=== PATIENT | male | born 1990 | race Caucasian/White ===

== ENCOUNTER 2018-07-11 13:36 | Emergency (ER) | payer BC ==
--- NOTE | 2018-07-11 15:50 | EDM.PDOC ---
ED HPI GENERAL MEDICAL PROBLEM - General Chief Complaint: ENT Problem Stated Complaint: NOSE INJURY Time Seen by Provider: 07/11/18 14:15 Source of Information: Reports: Patient History Limitations: Reports: No Limitations - History of Present Illness INITIAL COMMENTS - FREE TEXT/NARRATIVE: The patient states that he was the third basement playing softball around 13:40 , when a struck ball that he was trying to catch a bounced Sam, striking him in his face, primarily to the left side of his nose and to his left eye. There is no loss of consciousness. The patient presents to the ED with a laceration just to the medial side of his left eye, causing blood on his face, as well as right epistaxis. He reports only a dull ache to his nose. He is otherwise uninjured. No prior nose injury. The patient's PCP is Dr. Zuñiga at [facility]. Nose Pain Score (Numeric/FACES): 6 - Related Data Allergies Allergy/AdvReac Type Severity Reaction Status Date / Time No Known Allergies Allergy Verified 07/11/18 13:54 Home Meds: Home Meds . [No Known Home Meds] 07/11/18 [History] Past Medical History Cardiovascular History: Reports: High Cholesterol (untreated) Psychiatric History: Reports: Anxiety (untreated), Panic Attack (untreated) - Past Surgical History HEENT Surgical History: Reports: Myringotomy w Tube(s) (bilateral), Oral Surgery (wisdom teeth extraction) Social & Family History - Tobacco Use Smoking Status *Q: Never Smoker Second Hand Smoke Exposure: No - Caffeine Use Caffeine Use: Reports: Coffee - Alcohol Use Alcohol Use History: Yes Days Per Week of Alcohol Use: 3 Number of Drinks Per Day: 3 Total Drinks Per Week: 9 Alcohol Use Frequency: Socially - Recreational Drug Use Recreational Drug Use: Yes Drug Use in Last 12 Months: Yes Recreational Drug Type: Reports: Marijuana/Hashish (smokes regularly) - Living Situation & Occupation Living situation: Reports: Single, Alone 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 ED EXAM, GENERAL - Physical Exam Exam: See Below Exam Limited By: No Limitations General Appearance: Alert, WD/WN, No Apparent Distress Eye Exam: Left Eye: Periorbital Changes (slight eccymosis to the medial aspect. No swelling or tenderness), Bilateral Eye: EOMI Ears: Normal External Exam, Hearing Grossly Normal Nose: Other (Minimal tenderness to palpation along the nasal bones. No nasal swelling. No septal hematoma. There is blood in the left nare, although no active bleeding presently. There is blood in the right nare, with active bleeding.) Throat/Mouth: Normal Lips, Normal Teeth, Normal Gums, Normal Voice, No Airway Compromise, Other ( Blood is seen in the posterior oropharynx.) Head: Normocephalic, Other (Approximately 1 cm linear scratch medial to the left eye. The wound had been bloating, although was not bleeding upon inspection , however, my cleaning the wound caused it to bleed slightly.) Neck: Normal Inspection, Supple, Non-Tender, Full Range of Motion Respiratory/Chest: No Respiratory Distress, Lungs Clear, Normal Breath Sounds, No Accessory Muscle Use Cardiovascular: Normal Peripheral Pulses, Regular Rate, Rhythm, No Edema, No Gallop, No JVD, No Murmur, No Rub Peripheral Pulses: 4+: Radial (L), Radial (R) GI/Abdominal: Normal Bowel Sounds, Soft, Non-Tender, No Organomegaly, No Distention, No Abnormal Bruit, No Mass (Male) Exam: Deferred Rectal (Males) Exam: Deferred Back Exam: Normal Inspection, Full Range of Motion, NT Extremities: Normal Inspection, Normal Range of Motion, No Pedal Edema, Normal Capillary Refill Neurological: Alert, Oriented, Normal Cognition, No Motor/Sensory Deficits Psychiatric: Normal Affect Skin Exam: Warm, Dry, Intact, Normal Color, No Rash Course - Vital Signs Last Recorded V/S: Last Vital Signs Temp 37.4 C 07/11/18 13:50 Pulse 73 07/11/18 15:30 Resp 16 07/11/18 15:30 BP 137/90 07/11/18 15:30 Pulse Ox 98 07/11/18 15:30 - Orders/Labs/Meds Meds: Medications Discontinued Medications Generic Name Dose Route Start Last Admin Trade Name Freq PRN Reason Stop Dose Admin Cocaine HCl 2 ml 07/11/18 15:05 07/11/18 15:14 Cocaine Hcl TOP 07/11/18 15:06 2 ml ONETIME STA Administration - Re-Assessments/Exams Free Text/Narrative Re-Assessment/Exam: 07/11/18 15:44 Topical cocaine was applied to the patient's right nostril, followed by direct pressure for 10-15 minutes with the cocaine-soaked cotton tipped swabs in the nose. This appears to successfully stopped the epistaxis. The scratch to the medial aspect of the patient's left eye bled a bit after I cleaned it up to examine it, however, the bleeding appears to stop again. Kindra RN will clean the wound up for the patient to be discharged home, however, sutures are not indicated. Departure - Departure Time of Disposition: 15:46 Disposition: Home, Self-Care 01 Condition: Good Clinical Impression: Right-sided epistaxis, Facial laceration - Discharge Information *PRESCRIPTION DRUG MONITORING PROGRAM REVIEWED*: Not Applicable *COPY OF PRESCRIPTION DRUG MONITORING REPORT IN PATIENT NICKIE: Not Applicable Instructions: Facial Laceration, [id number] Referrals: PCP,Not In Area [Primary Care Provider] - Forms: ED Department Discharge Additional Instructions: You were seen in the emergency room after taking a softball to the face, causing a cut to your face and a nosebleed. Take [id number] ibuprofen, 2-3 tablets (400-600 mg) every 8 hours, with food, as needed for discomfort. The cut to your face is superficial, and does not require sutures. Keep it clean with ordinary soap and water. We recommend you apply an ice pack to your face and nose is much as possible over the next 24 hours, to help minimize swelling, and to decrease the risk of your nose bleeding again. Your nosebleed was successfully stopped in the ER. If it bleeds again, sit upright, tilt your head slightly forward, and pinch your nostrils hard for 10- 15 minutes. This almost always stops a nosebleed, however, if it does not, please return to the ER for further evaluation.
== END 2018-07-11 16:00 | disposition home or self-care (01) ==
LOC: JD.ED 13:36
DX: S01.112A Laceration without foreign body of left eyelid and periocular area, initial encounter (principal); R04.0 Epistaxis; W21.07XA Struck by softball, initial encounter
CPT/HCPCS: 99283